=== PATIENT | male | born 1985 | race Caucasian/White ===

== ENCOUNTER 2021-06-23 15:32 | Emergency (ER) | payer OTHER ==
[2021-06-23 15:53] VITALS: BP 145/93; PULSE 83; O2SAT 99
[2021-06-23] MEDS ORDERED: PERCOCET TABLET 5/325MG ONE (16:21)
[2021-06-23] MEDS: Augmentin 875-125 Tablet PO ONE (16:21)
[2021-06-23] MEDS ORDERED: Augmentin 875-125 Tablet ONE (16:21)
[2021-06-23] MEDS: PERCOCET TABLET 5/325MG PO ONE (16:21)
--- NOTE | 2021-06-23 16:22 | ERPHSYRPT ---
- History of Present Illness Time Seen by Provider: 06/23/21 15:42 Source: patient Exam Limitations: no limitations Patient Subjective Stated Complaint: Toothache Triage Nursing Assessment: Patient brought back to ED via w/c and requested to remain in personal w/c. Patient A+O x 3. Patient's skin pink, warm and dry. Patient complains of toothache to all of [place] teeth 10/10. Patient states he is unable to get into dentist for 3 weeks. Gums noted to be red and swollen with all bottom teeth decayed. Physician History: 36 years old male with history of bad dentition with multiple fractures, periodontal disease presented in the ER with right lower jaw pain and swelling for 1 week with progressive worsening making it difficult to swallow and more with hot and cold touch. Partial relief with [id number] medication. No fever or chills reported. Timing/Duration: gradual onset, weeks (2) Severity: moderate ENT Location: facial, dental Prearrival Treatment: over the counter meds Associated Symptoms: tooth pain Allergies/Adverse Reactions: No Known Drug Allergies Allergy (Unverified 06/23/21 15:46) Hx Influenza Vaccination/Date Given: No Hx Pneumococcal Vaccination/Date Given: No Immunizations Up to Date: Yes Travel Risk - International Travel Have you traveled outside of the country in past 3 weeks: No - Coronavirus Screening Are you exhibiting any of the following symptoms?: No Close contact with a COVID-19 positive Pt in past 14-21 Days: No - Vaccine Status Have you recieved a Covid-19 vaccination: No - Review of Systems Constitutional: No Symptoms Eyes: No Symptoms Ears, Nose, & Throat: Mouth Pain, Loose Teeth Respiratory: No Symptoms Cardiac: No Symptoms Abdominal/Gastrointestinal: No Symptoms Genitourinary Symptoms: No Symptoms Skin: No Symptoms Neurological: No Symptoms Endocrine: No Symptoms Hematologic/Lymphatic: No Symptoms - Past Medical History Pertinent Past Medical History: No Neurological History: No Pertinent History ENT History: No Pertinent History Cardiac History: No Pertinent History Respiratory History: No Pertinent History Endocrine Medical History: No Pertinent History Musculoskeletal History: No Pertinent History GI Medical History: No Pertinent History History: No Pertinent History Psycho-Social History: No Pertinent History Male Reproductive Disorders: No Pertinent History - Past Surgical History Past Surgical History: No Neuro Surgical History: No Pertinent History Cardiac: No Pertinent History Respiratory: No Pertinent History Gastrointestinal: No Pertinent History Genitourinary: No Pertinent History Musculoskeletal: No Pertinent History Male Surgical History: No Pertinent History - Social History Smoking Status: Current every day smoker How long have you smoked: years Exposure to second hand smoke: No Drug Use: none Patient Lives Alone: Yes - Nursing Vital Signs Nursing Vital Signs: Initial Vital Signs Temperature 98.0 F 06/23/21 15:46 Pulse Rate 83 06/23/21 15:46 Respiratory Rate 18 06/23/21 15:46 Blood Pressure 145/93 06/23/21 15:46 O2 Sat by Pulse Oximetry 99 06/23/21 15:46 Pain Scale Pain Intensity 7 - Physical Exam General Appearance: no apparent distress, alert Eye Exam: bilateral eye: normal inspection, PERRL, EOMI Ear Exam: bilateral ear: auricle normal, canal normal, TM normal Nasal Exam: normal inspection Throat Exam: dental tenderness (Multiple broken teeth with caries and periodontal disease. Swollen left lower gingiva with minimal tenderness. 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, normal mood/affect Skin Exam: normal color, warm SpO2 Interpretation: normal SpO2: 99 O2 Delivery: Room Air Ordered Tests: Medication Summary Discontinued Medications Generic Name Dose Route Start Last Admin Trade Name Frantzq PRN Reason Stop Dose Admin Amoxicillin/Clavulanate Potassium 875 mg 06/23/21 16:17 06/23/21 16:21 Amox Tr/Potassium Clavulanate 875 Mg Tablet PO 06/23/21 16:18 875 mg STAT ONE Administration Amoxicillin/Clavulanate Potassium Confirm 06/23/21 16:21 Amox Tr/Potassium Clavulanate 875 Mg Tablet Administered 06/23/21 16:22 Dose 875 mg .ROUTE .STK-MED ONE Oxycodone/Acetaminophen 1 tab 06/23/21 16:17 06/23/21 16:21 Oxycodone Hcl/Apap 5 Mg/325 Mg Tablet PO 06/23/21 16:18 1 tab STAT ONE Administration Oxycodone/Acetaminophen Confirm 06/23/21 16:21 Oxycodone Hcl/Apap 5 Mg/325 Mg Tablet Administered 06/23/21 16:22 Dose 1 tab .ROUTE .STK-MED ONE - Progress Progress: pain not gone completely Progress Note: 06/23/21 16:19 Given pain medication and started on antibiotics, recommended outpatient dental follow-up. Counseled pt/family regarding: diagnosis, need for follow-up - Departure Departure Disposition: Home Clinical Impression: Dental infection Condition: Stable Critical Care Time: No Referrals: CAROLEE ANTON [Primary Care Provider] - Follow up/PCP as directed LUIS HUERTA DDS [NON-STAFF PHY W/O PRIVILEGES] - Follow up/PCP as directed (Call for appointment in the morning) Instructions: Tooth Abscess (DC), Dental Pain (DC) Additional Instructions: Take Tylenol/ibuprofen as needed. Follow-up with dentist for reevaluation. Return to ER for increasing pain swelling, difficulty swallowing, fever chills etc. Prescriptions: Ibuprofen 600 mg PO Q6HPRN PRN 10 Days #20 tablet PRN Reason: Pain Amox Tr/Potass Clav. 875 mg [Augmentin 875-125 Tablet] 875 mg PO BID #14 tablet
== END 2021-06-23 16:34 | disposition home or self-care (01) ==
LOC: ED 15:32
DX: K04.7 Periapical abscess without sinus (principal); Z72.0 Tobacco use
CPT/HCPCS: 99283; A9270-GY

== ENCOUNTER 2021-07-15 17:07 | Emergency (ER) | payer OTHER ==
[2021-07-15 17:18] VITALS: O2SAT 98
[2021-07-15] MEDS ORDERED: Rocephin 1000 MG INJ IM ONE (18:07)
[2021-07-15] MEDS ORDERED: AFRIN NASAL SPRAY NS ONE (18:08)
[2021-07-15 18:10] VITALS: BP 131/59; PULSE 82
[2021-07-15] MEDS ORDERED: Rocephin 1000 MG INJ ONE (18:11)
--- NOTE | 2021-07-15 18:13 | ERPHSYRPT ---
- History of Present Illness Time Seen by Provider: 07/15/21 18:09 Source: patient Exam Limitations: no limitations Patient Subjective Stated Complaint: Pt states "I have horrible sinus pressure, I feel like my temperature is high and I ache." Triage Nursing Assessment: Pt presented alert and oriented X 3, skin pwd Pt able to speak in clear full setences. Pt in no apparent respiratory distress. Pt uses a wheelchair. Physician History: Patient is a 36-year-old male who presents with a complaint of runny nose body aches headache facial pressure and sinus drainage. He has had some cough which is nonproductive. He has no known exposure to COVID. He does have a slight sore throat. Timing/Duration: day(s) (Several days) Cough Quality/Degree: dry cough Possible Cause: occasional episodes Modifying Factors: Improves With: coughing Associated Symptoms: cough, facial pain, headache, nasal congestion, nasal drainage, sinus infection, sore throat Allergies/Adverse Reactions: No Known Drug Allergies Allergy (Verified 07/15/21 17:18) Hx Tetanus, Diphtheria Vaccination/Date Given: No Hx Influenza Vaccination/Date Given: No Hx Pneumococcal Vaccination/Date Given: No Immunizations Up to Date: Yes Travel Risk - International Travel Have you traveled outside of the country in past 3 weeks: No - Coronavirus Screening Are you exhibiting any of the following symptoms?: No Close contact with a COVID-19 positive Pt in past 14-21 Days: No - Vaccine Status Have you recieved a Covid-19 vaccination: No - Review of Systems Constitutional: Chills, No Fever Eyes: No Symptoms Ears, Nose, & Throat: Nose Congestion, Nose Discharge, Sinus Drainage, Throat Pain Respiratory: Cough, No Dyspnea Cardiac: No Chest Pain, No Edema, No Syncope Abdominal/Gastrointestinal: No Abdominal Pain, No Nausea, No Vomiting, No Diarrhea Genitourinary Symptoms: No Dysuria Musculoskeletal: No Back Pain, No Neck Pain Skin: No Rash Neurological: No Dizziness, No Focal Weakness, No Sensory Changes Psychological: No Symptoms Endocrine: No Symptoms All Other Systems: Reviewed and Negative - Past Medical History Pertinent Past Medical History: Yes Neurological History: No Pertinent History ENT History: No Pertinent History Cardiac History: No Pertinent History Respiratory History: No Pertinent History Endocrine Medical History: No Pertinent History Musculoskeletal History: No Pertinent History GI Medical History: No Pertinent History History: No Pertinent History Psycho-Social History: No Pertinent History Male Reproductive Disorders: No Pertinent History - Past Surgical History Past Surgical History: Yes Neuro Surgical History: No Pertinent History Cardiac: No Pertinent History Respiratory: No Pertinent History Gastrointestinal: No Pertinent History Genitourinary: No Pertinent History Musculoskeletal: No Pertinent History Male Surgical History: No Pertinent History Other Surgical History: right leg - Social History Smoking Status: Current every day smoker How long have you smoked: years Exposure to second hand smoke: No Drug Use: none Patient Lives Alone: Yes - Nursing Vital Signs Nursing Vital Signs: Initial Vital Signs Temperature 98.8 F 07/15/21 17:13 Pulse Rate 85 07/15/21 17:13 Respiratory Rate 22 07/15/21 17:13 Blood Pressure 139/65 07/15/21 17:13 O2 Sat by Pulse Oximetry 98 07/15/21 17:13 Pain Scale Pain Intensity 10 - Physical Exam General Appearance: mild distress, alert Eye Exam: PERRL/EOMI, eyes nml inspection Ears, Nose, Throat Exam: TMs normal, pharynx normal, moist mucous membranes, other (Copious watery nasal drainage) Neck Exam: normal inspection, non-tender, supple, full range of motion Respiratory Exam: normal breath sounds, lungs clear, No respiratory distress Cardiovascular Exam: regular rate/rhythm, normal heart sounds Gastrointestinal/Abdomen Exam: soft, No tenderness Back Exam: normal inspection, No CVA tenderness, No vertebral tenderness Extremity Exam: normal inspection, normal range of motion Neurologic Exam: alert, oriented x 3, cooperative, normal mood/affect, sensation nml, No motor deficits Skin Exam: normal color, warm, dry, No rash Lymphatic Exam: No adenopathy SpO2: 98 - Course Nursing assessment & vital signs reviewed: Yes Ordered Tests: Medication Summary Generic Name Dose Route Start Last Admin Trade Name Freq PRN Reason Stop Dose Admin Oxymetazoline HCl 15 ml 07/15/21 18:08 Oxymetazoline Nasal [place] 15ml Bottle NS 07/15/21 18:09 STAT ONE - Progress Air Movement: good Blood Culture(s) Obtained: No Antibiotics given: Yes - Departure Departure Disposition: Home Clinical Impression: Sinusitis Condition: Stable Critical Care Time: No Referrals: CAROLEE ANTON [Primary Care Provider] - Follow up/PCP as directed Instructions: Sinusitis, Adult (DC) Prescriptions: Cephalexin Mh 500 mg [Keflex 500 mg] 500 mg PO QID #40 cap
== END 2021-07-15 18:28 | disposition home or self-care (01) ==
LOC: ED 17:07
DX: J01.90 Acute sinusitis, unspecified (principal); R51.9 Headache, unspecified; J34.89 Other specified disorders of nose and nasal sinuses; M79.10 Myalgia, unspecified site; R05.9 Cough, unspecified; R09.81 Nasal congestion; Z72.0 Tobacco use
CPT/HCPCS: 96372; U0003; 99284; J0696; A9270-GY

== ENCOUNTER 2022-05-21 03:07 | Emergency (ER) | payer OTHER ==
--- NOTE | 2022-05-21 03:14 | ERPHSYRPT ---
- History of Present Illness Time Seen by Provider: 05/21/22 03:14 Source: patient Exam Limitations: no limitations Physician History: This is a 37-year-old white male patient who has general poor dentition. Pain in the left side of his upper and lower molars began hurting yesterday. Today, there is been some swelling noted. Patient has not seen a dentist yet for his current complaints. ENT Location: dental Prearrival Treatment: no prearrival treatment Associated Symptoms: tooth pain Allergies/Adverse Reactions: No Known Drug Allergies Allergy (Verified 07/15/21 17:18) Hx Tetanus, Diphtheria Vaccination/Date Given: No Hx Influenza Vaccination/Date Given: No Hx Pneumococcal Vaccination/Date Given: No Travel Risk - International Travel Have you traveled outside of the country in past 3 weeks: No - Coronavirus Screening Are you exhibiting any of the following symptoms?: No Close contact with a COVID-19 positive Pt in past 14-21 Days: No - Vaccine Status Have you recieved a Covid-19 vaccination: No - Review of Systems Constitutional: No Symptoms Eyes: No Symptoms Ears, Nose, & Throat: Other (Left-sided dental pain) Respiratory: No Symptoms, No Stridor Cardiac: No Symptoms Abdominal/Gastrointestinal: No Symptoms Genitourinary Symptoms: No Symptoms Musculoskeletal: No Symptoms Skin: No Symptoms Neurological: No Symptoms Psychological: No Symptoms Endocrine: No Symptoms Hematologic/Lymphatic: No Symptoms Immunological/Allergic: No Symptoms All Other Systems: Reviewed and Negative - Past Medical History Pertinent Past Medical History: Yes Neurological History: No Pertinent History ENT History: No Pertinent History Cardiac History: No Pertinent History Respiratory History: No Pertinent History Endocrine Medical History: No Pertinent History Musculoskeletal History: No Pertinent History GI Medical History: No Pertinent History History: No Pertinent History Psycho-Social History: No Pertinent History Male Reproductive Disorders: No Pertinent History - Past Surgical History Past Surgical History: Yes Neuro Surgical History: No Pertinent History Cardiac: No Pertinent History Respiratory: No Pertinent History Gastrointestinal: No Pertinent History Genitourinary: No Pertinent History Musculoskeletal: No Pertinent History Male Surgical History: No Pertinent History Other Surgical History: right leg - Social History Smoking Status: Current every day smoker How long have you smoked: years Exposure to second hand smoke: No Drug Use: none Patient Lives Alone: Yes - Nursing Vital Signs Nursing Vital Signs: Initial Vital Signs Temperature 98.7 F 11/05/22 03:16 Pulse Rate 106 H 05/21/22 03:16 Respiratory Rate 18 05/21/22 03:16 Blood Pressure 137/77 05/21/22 03:16 O2 Sat by Pulse Oximetry 97 05/21/22 03:16 Pain Scale Pain Intensity 8 - Physical Exam General Appearance: no apparent distress, alert Eye Exam: bilateral eye: normal inspection, PERRL, EOMI Ear Exam: bilateral ear: auricle normal Nasal Exam: normal inspection Throat Exam: dental tenderness (Generalized poor dentition with multiple fractured teeth), mandibular swelling (Left side mild), maxillary swelling (Left side mild), No voice changes Neck Exam: normal inspection, non-tender, supple, full range of motion, trachea midline Cardiovascular/Respiratory Exam: chest non-tender, no respiratory distress Abdominal Exam: non-tender Neurologic Exam: alert, oriented x 3, cooperative, 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, normal mood/affect, nml cerebellar function, nml station & gait, sensation nml Skin Exam: normal color, warm, dry O2 Delivery: Room Air - Course Nursing assessment & vital signs reviewed: Yes Ordered Tests: Medication Summary Discontinued Medications Generic Name Dose Route Start Last Admin Trade Name Gunner PRN Reason Stop Dose Admin Ceftriaxone Sodium 1,000 mg 05/21/22 03:46 05/21/22 03:50 Ceftriaxone Sodium 1000 Mg Inj Vial IM 05/21/22 03:47 1,000 mg STAT ONE Administration Ceftriaxone Sodium Confirm 05/21/22 03:49 Ceftriaxone Sodium 1000 Mg Inj Vial Administered 05/21/22 03:50 Dose 1,000 mg .ROUTE .STK-MED ONE - Progress Progress: unchanged Counseled pt/family regarding: diagnosis, need for follow-up - Departure Departure Disposition: Home Clinical Impression: Pain due to dental caries Condition: Stable Critical Care Time: No Referrals: CAROLEE ANTON [Primary Care Provider] - Follow up/PCP as directed Additional Instructions: Take your antibiotics as prescribed. Use [id number] Tylenol and ibuprofen for pain control. Follow-up with a dentist on 05/23/2022 for definitive care. Prescriptions: Cephalexin Mh 500 mg [Keflex 500 mg] 500 mg PO TID #21 cap
[2022-05-21 03:25] VITALS: BP 137/77
[2022-05-21] MEDS ORDERED: Rocephin 1000 MG INJ IM ONE (03:46)
[2022-05-21] MEDS ORDERED: Rocephin 1000 MG INJ ONE (03:49)
[2022-05-21] MEDS ORDERED: PERCOCET TABLET 5/325MG PO STA (03:55)
[2022-05-21] MEDS ORDERED: PERCOCET TABLET 5/325MG ONE (04:09)
[2022-05-21 04:17] VITALS: PULSE 100; O2SAT 98
== END 2022-05-21 04:17 | disposition home or self-care (01) ==
LOC: ED 03:07
DX: K02.9 Dental caries, unspecified (principal); K08.89 Other specified disorders of teeth and supporting structures; Z72.0 Tobacco use; Z28.310 Unvaccinated for COVID-19
CPT/HCPCS: 96372; 99283; J0696; A9270-GY

== ENCOUNTER 2023-06-07 12:53 | Emergency (ER) | payer OTHER ==
--- NOTE | 2023-06-07 13:08 | ERPHSYRPT ---
- History of Present Illness Time Seen by Provider: 06/07/23 13:07 Source: patient Exam Limitations: no limitations Physician History: This is a 38-year-old white male patient who presents to the emergency department by ambulance secondary to not having transportation secondary to sore throat and having painful swallowing and pain on his tongue as well as white spots on his tongue on the left side. He is not short of breath. He has no chest pain. He has no abdominal pain. He had no fever. He denies cough. He had no nausea vomiting or diarrhea symptoms. Timing/Duration: day(s) (4) Cough Quality/Degree: no cough Possible Cause: no prior episodes Associated Symptoms: sore throat, No fever, No chills, No chest pain/soreness, No cough, No muscle aches Allergies/Adverse Reactions: No Known Drug Allergies Allergy (Verified 06/07/23 12:56) Hx Tetanus, Diphtheria Vaccination/Date Given: No Hx Influenza Vaccination/Date Given: No Hx Pneumococcal Vaccination/Date Given: No Travel Risk - International Travel Have you traveled outside of the country in past 3 weeks: No - Coronavirus Screening Are you exhibiting any of the following symptoms?: No Close contact with a COVID-19 positive Pt in past 14-21 Days: No - Vaccine Status Have you recieved a Covid-19 vaccination: No - Review of Systems Constitutional: No Symptoms Eyes: No Symptoms Ears, Nose, & Throat: Painful Swallowing, Other (Posterior left side tongue soreness) Respiratory: No Symptoms Cardiac: No No Symptoms Abdominal/Gastrointestinal: No Symptoms Genitourinary Symptoms: No Symptoms Musculoskeletal: No Symptoms Skin: No Symptoms Neurological: No Symptoms Psychological: No Symptoms Endocrine: No Symptoms Hematologic/Lymphatic: No Symptoms Immunological/Allergic: No Symptoms All Other Systems: Reviewed and Negative - Past Medical History Pertinent Past Medical History: Yes Neurological History: No Pertinent History ENT History: No Pertinent History Cardiac History: No Pertinent History Respiratory History: No Pertinent History Endocrine Medical History: No Pertinent History Musculoskeletal History: No Pertinent History GI Medical History: No Pertinent History History: No Pertinent History Psycho-Social History: No Pertinent History Male Reproductive Disorders: No Pertinent History - Past Surgical History Past Surgical History: Yes Neuro Surgical History: No Pertinent History Cardiac: No Pertinent History Respiratory: No Pertinent History Gastrointestinal: No Pertinent History Genitourinary: No Pertinent History Musculoskeletal: No Pertinent History Male Surgical History: No Pertinent History Other Surgical History: right leg - Social History Smoking Status: Current every day smoker How long have you smoked: years Exposure to second hand smoke: No Drug Use: none Patient Lives Alone: Yes - Nursing Vital Signs Nursing Vital Signs: Initial Vital Signs Temperature 99 F 06/07/23 12:54 Pulse Rate 93 H 06/07/23 12:54 Respiratory Rate 18 06/07/23 12:54 Blood Pressure 116/88 06/07/23 12:54 O2 Sat by Pulse Oximetry 99 06/07/23 12:54 Pain Scale Pain Intensity 0 - Physical Exam General Appearance: no apparent distress, alert, anxiety Eye Exam: PERRL/EOMI Ears, Nose, Throat Exam: moist mucous membranes, other (Left side posterior tongue with white fibrinous exudate spots present. Patient is handling his secretions but he is in obvious discomfort when he swallows.) Neck Exam: normal inspection, non-tender, supple, full range of motion Respiratory Exam: normal breath sounds, lungs clear, airway intact, No chest tenderness, No respiratory distress Cardiovascular Exam: regular rate/rhythm, normal heart sounds, normal peripheral pulses Gastrointestinal/Abdomen Exam: soft, normal bowel sounds, No tenderness Rectal Exam: not done Back Exam: normal inspection, normal range of motion, No CVA tenderness, No vertebral tenderness Extremity Exam: normal inspection, normal range of motion, pelvis stable Neurologic Exam: alert, oriented x 3, cooperative, 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, normal mood/affect, nml cerebellar function, nml station & gait, sensation nml Skin Exam: normal color, warm, dry Lymphatic Exam: No adenopathy SpO2 Interpretation: normal O2 Delivery: Room Air - Course Nursing assessment & vital signs reviewed: Yes Ordered Tests: Active Orders 24 hr Category Date Time Status NECK WO CONTRAST [CT] Stat Exams 06/07/23 15:08 Completed Lab/Rad Data: Laboratory Results 06/07/23 06/07/23 Range/Units 13:12 13:00 Influenza Type A Ag NEGATIVE (NEGATIVE) Influenza Type B Ag NEGATIVE (NEGATIVE) RSV (PCR) NEGATIVE (NEGATIVE) SARS-CoV-2 (PCR) NEGATIVE (NEGATIVE) Group A Strep Antibody NOT DETECTED (NEGATIVE) - Progress Progress: re-examined, unchanged Air Movement: good Progress Note: 06/07/23 14:33 This patient medical issues 1 of low complexity. Level complex in the workup performed based on review the patient's past medical history, review the patient medication list, review the patient drug allergy list, history present illness and physical findings on examination. Workup includes viral swabs and group A strep swab. 06/07/23 15:17 I reexamined him at the time I was initially going to discharge him. However, he does seem to be in significant discomfort when he swallows. He is breathing well his oxygen saturation levels are normal. Because of the symptoms and the presence of the fibrous and exudate I am ordering a CT scan of the neck/soft tissue. 06/07/23 16:10 CT scan of soft tissue of the neck shows soft tissue mass expected region of the palate teen tonsil. Rule out tonsillitis clinically. Malignancy is not totally excluded. Prominent left cervical lymph nodes. Reactive versus metastatic. I reviewed the results of this study which was interpreted by the radiologist and I reviewed the impression. He was told specifically that he needs to follow-up with his primary care provider in the next 3 to 5 days for further evaluation management. He was also told to return to the emergency department if symptoms worsen Blood Culture(s) Obtained: No Antibiotics given: Yes Counseled pt/family regarding: lab results, diagnosis, rad results Medical Desision Making - Diagnostic Testing Diagnostic test were ordered, analyzed, and reviewed by me: Yes Radiological Interpretation: Reviewed by me, Teleradiologist Report - Risk of complications The pt has a mod risk of morbidity or mortality based on: Need for prescription drug management - Departure Departure Disposition: Home Clinical Impression: Tonsillar mass Condition: Stable Critical Care Time: No Referrals: DOCTOR,NO FAMILY [Primary Care Provider] - Follow up/PCP as directed Additional Instructions: Drink plenty of clear and full liquids. Take your medication as prescribed. Call your primary care provider to make a follow-up appointment in the next 3 to 5 days to discuss further evaluation and management of the left tonsillar mass. Return to the emergency department if symptoms worsen Prescriptions: Prednisone 10 mg [Deltasone 10 mg] 10 mg PO TID #12 tablet Hydrocodone/Acetaminophen [Hydrocodone-Acetamn 7.5-325/15] 10 ml PO Q8H PRN #120 ml MDD 30 ml PRN Reason: Cough Azithromycin 250 mg [Zithromax 250 MG TABLET] 250 mg PO ZPACK #6 tablet
[2023-06-07 13:13] VITALS: RESP 18; TEMP 99
[2023-06-07 13:49] LABS: INFLUENZA A NEGATIVE (NEGATIVE); INFLUENZA B NEGATIVE (NEGATIVE); RESPIRATORY SYNCTIAL VIRUS NEGATIVE (NEGATIVE); SARS-CoV-2 Xpert Express NEGATIVE (NEGATIVE)
[2023-06-07 15:12] VITALS: BP 97/76; PULSE 81; O2SAT 99
--- NOTE | 2023-06-07 16:03 | XRAY ---
Indication: Left posterior pharyngeal/lingual pain. Multiple contiguous axial images obtained through the neck without contrast as ordered. Comparison: None Homogeneous soft tissue mass in expected region left palatine tonsil measuring at least 1.5 x 1.8 cm greatest axial dimension either unilateral tonsillitis versus malignancy. Lack of IV contrast precludes further characterization. Prominent level I left cervical nodes largest 1.9 x 1.1 cm either reactive to tonsillitis versus metastatic. Normal epiglottis. Infraglottic airway widely patent. Thyroid gland homogeneous. Major arteries and veins are normal in course and caliber. Visualized osseous structures intact with moderate C5-C6 degenerative disc disease. No suspicious bony lesions. Lung apices demonstrates subpleural cystic changes bilaterally. Base of brain unremarkable. Visualized paranasal sinuses and mastoid air cells are clear. Impression: Soft tissue mass expected region left palatine tonsil. Rule out tonsillitis clinically. Malignancy not completely excluded. Direct laryngoscopic may yield further information. Prominent left cervical lymph nodes either reactive versus metastatic.
[2023-06-07] MEDS ORDERED: Rocephin 1000 MG INJ IM ONE (16:15)
[2023-06-07] MEDS ORDERED: solu-MEDROL 125 MG, Sterile H2O 10 ml 2 ML IM ONE ×2 (16:15)
[2023-06-07] MEDS ORDERED: solu-MEDROL ONE (16:20)
[2023-06-07] MEDS ORDERED: Sterile H2O 10 ml IJ ONE (16:20)
[2023-06-07] MEDS ORDERED: Rocephin 1000 MG INJ ONE (16:21)
[2023-06-07] MEDS ORDERED: XYLOCAINE 1% HCL 20 ML MDV ONE (16:21)
== END 2023-06-07 17:31 | disposition home or self-care (01) ==
LOC: ED 12:53
DX: J35.8 Other chronic diseases of tonsils and adenoids (principal); R07.0 Pain in throat; R13.10 Dysphagia, unspecified; Z79.52 Long term (current) use of systemic steroids; Z79.891 Long term (current) use of opiate analgesic; Z28.310 Unvaccinated for COVID-19; Z72.0 Tobacco use
CPT/HCPCS: 0241U; 70490; 87651; 96372; 99284; J0696; J2930

== ENCOUNTER 2023-08-15 09:52 | Emergency (ER) | payer OTHER ==
[2023-08-15 09:56] VITALS: RESP 20; O2SAT 98
--- NOTE | 2023-08-15 10:32 | XRAY ---
Indication: Pain. Multiple contiguous axial images obtained through the abdomen and pelvis without contrast. Comparison: None Study is degraded by respiration artifact throughout. Lung bases grossly clear. Heart not enlarged. Stomach distended with food/fluid. Gallbladder contracted without gallstones. Noncontrasted stomach and bowel loops appear nonobstructed. Appendix not seen. There is mild diffuse scattered colonic fecal debris with moderate rectal fecal impaction. No free fluid/air. Remaining liver, gallbladder, pancreas, spleen, adrenal glands, kidneys, ureters, bladder, and aorta are unremarkable for noncontrast exam. Osseous structures intact. No ventral or inguinal hernias. Impression: 1. Respiration artifact. 2. Mild diffuse fecal stasis with rectal impaction. 3. Remaining CT abdomen/pelvis without contrast exam is grossly negative.
--- NOTE | 2023-08-15 10:48 | ERPHSYRPT ---
- History of Present Illness Time Seen by Provider: 08/15/23 10:00 Source: patient Exam Limitations: no limitations Patient Subjective Stated Complaint: Pt states "I started to go to the bathroom and it stopped and the poop is large and hard, I had to break it off and it h urts and there is some bleeding." Triage Nursing Assessment: Pt presented alert and oriented X 3, skin pwd. PT ambulates with an upright steady gait, able to speak in clear full sentences. Physician History: Patient is here for constipation. Patient is passing stool however states it is too painful. No other complaints. Symptoms started today. No rectal bleeding. No chest pain or shortness of breath. No nausea vomiting or diaphoresis. No trauma no fever. Patient voices no other complaints or concerns at this time. Portions of this note were created with voice recognition technology. There may be grammatical, spelling, punctuation or sound alike errors Timing/Duration: today Severity: moderate Modifying Factors: Improves With: nothing Associated Symptoms: denies symptoms Allergies/Adverse Reactions: No Known Drug Allergies Allergy (Verified 06/07/23 12:56) Home Medications: No Reportable Medications [No Reported Medications] 08/15/23 [History] Hx Tetanus, Diphtheria Vaccination/Date Given: No Hx Influenza Vaccination/Date Given: No Hx Pneumococcal Vaccination/Date Given: No Immunizations Up to Date: No Travel Risk - International Travel Have you traveled outside of the country in past 3 weeks: No - Coronavirus Screening Are you exhibiting any of the following symptoms?: No Close contact with a COVID-19 positive Pt in past 14-21 Days: No - Vaccine Status Have you recieved a Covid-19 vaccination: No - Review of Systems Constitutional: No Symptoms, No Fever, No Chills Eyes: No Symptoms Ears, Nose, & Throat: No Symptoms Respiratory: No Symptoms, No Cough, No Dyspnea Cardiac: No Symptoms, No Chest Pain, No Edema, No Syncope Abdominal/Gastrointestinal: No Symptoms, No Abdominal Pain, No Nausea, No Vomiting, No Diarrhea Genitourinary Symptoms: No Symptoms, No Dysuria Musculoskeletal: No Symptoms, No Back Pain, No Neck Pain Skin: No Symptoms, No Rash Neurological: No Symptoms, No Dizziness, No Focal Weakness, No Sensory Changes Psychological: No Symptoms Endocrine: No Symptoms Hematologic/Lymphatic: No Symptoms Immunological/Allergic: No Symptoms All Other Systems: Reviewed and Negative - Past Medical History Pertinent Past Medical History: Yes Neurological History: No Pertinent History ENT History: No Pertinent History Cardiac History: No Pertinent History Respiratory History: No Pertinent History Endocrine Medical History: No Pertinent History Musculoskeletal History: No Pertinent History GI Medical History: No Pertinent History History: No Pertinent History Psycho-Social History: No Pertinent History Male Reproductive Disorders: No Pertinent History - Past Surgical History Past Surgical History: Yes Neuro Surgical History: No Pertinent History Cardiac: No Pertinent History Respiratory: No Pertinent History Gastrointestinal: No Pertinent History Genitourinary: No Pertinent History Musculoskeletal: No Pertinent History Male Surgical History: No Pertinent History Other Surgical History: right leg - Social History Smoking Status: Current every day smoker How long have you smoked: years Exposure to second hand smoke: No Drug Use: none Patient Lives Alone: Yes - Nursing Vital Signs Nursing Vital Signs: Initial Vital Signs Temperature 97.6 F 08/15/23 09:52 Pulse Rate 80 08/15/23 09:52 Respiratory Rate 20 08/15/23 09:52 Blood Pressure 96/62 08/15/23 09:52 O2 Sat by Pulse Oximetry 98 08/15/23 09:52 Pain Scale Pain Intensity 6 - Physical Exam General Appearance: no apparent distress, alert Eye Exam: PERRL/EOMI, eyes nml inspection Ears, Nose, Throat Exam: normal ENT inspection, TMs normal, pharynx normal, moist mucous membranes Neck Exam: normal inspection, non-tender, supple, full range of motion Respiratory Exam: normal breath sounds, lungs clear, airway intact, No respiratory distress Cardiovascular Exam: regular rate/rhythm, normal heart sounds, normal peripheral pulses Gastrointestinal/Abdomen Exam: soft, normal bowel sounds, No tenderness, No mass Back Exam: normal inspection, normal range of motion, No CVA tenderness, No vertebral tenderness Extremity Exam: normal inspection, normal range of motion, pelvis stable Neurologic Exam: alert, oriented x 3, cooperative, normal mood/affect, sensation nml, No motor deficits Skin Exam: normal color, warm, dry, No rash Lymphatic Exam: No adenopathy SpO2 Interpretation: normal SpO2: 98 O2 Delivery: Room Air - Course Nursing assessment & vital signs reviewed: Yes - CT Exams Abdomen/Pelvis CT Interpretation: Tele-radiologist Report (Rectal fecal impaction) Ordered Tests: Active Orders 24 hr Category Date Time Status ABDOMEN AND PELVIS W/0 CONTRAS [CT] Stat Exams 08/15/23 09:55 Completed - Progress Progress: improved Progress Note: 38-year-old male presents to our ED for evaluation of constipation. CT reveals fecal rectal impaction. Patient disimpacted in our ED. Patient resting comfortably. No active pain. Patient states he is ready for discharge. Vital stable. Patient voices no other complaints or concerns at this time. Portions of this note were created with voice recognition technology. There may be grammatical, spelling, punctuation or sound alike errors Complexity problem addressed is moderate acute complicated No critical care time Complex data reviewed and analyzed is moderate. Test ordered test reviewed her results analyzed and correlated clinically with history and physical examination. Risk of complication and or risk of morbidity/mortality of patient management is low Vital stable. Time spent to discharge patient is approximately 15 minutes. Plan of care established for shared decision making. No social determinants of health present impede follow-up. Portions of this note were created with voice recognition technology. There may be grammatical, spelling, punctuation or sound alike errors 08/15/23 11:02 Counseled pt/family regarding: diagnosis, need for follow-up, rad results - Departure Departure Disposition: Home Clinical Impression: Constipation, Fecal impaction in rectum Condition: Stable Critical Care Time: No Referrals: DOCTOR,NO FAMILY [Primary Care Provider] - Follow up/PCP as directed NAIMA LAINEZ DO [ACTIVE STAFF] - Follow up/PCP as directed Additional Instructions: Discharge/Care Plan NAN LEHMAN was seen on 08/15/23 in the Emergency Room. The patient was counseled regarding Diagnosis,Lab results, Imaging studies, need for follow up and when to return to the Emergency Room. Prescriptions given: Discharge Note I have spoken with the patient and/or caregivers. I have explained the patient's condition, diagnosis and treatment plan based on the information available to me at this time. I have answered the patient's and/or caregiver's questions and addressed any concerns. The patient and/or caregivers have as good understanding of the patient's diagnosis, condition and treatment plan as can be expected at this point. The vital signs have been stable. The patient's condition is stable and appropriate for discharge from the emergency department. The patient will pursue further outpatient evaluation with the primary care physician or other designated or consulting physician as outlined in the discharge instructions. The patient and/or caregivers are agreeable to this plan of care and follow-up instructions have been explained in detail. The patient and/or caregivers have received these instruction. The patient/and or caregivers are aware that any significant change in condition or worsening of symptoms should prompt an immediate return to this or the closest emergency department or call 911.
[2023-08-15 11:24] VITALS: BP 110/68; PULSE 78; TEMP 97.8
== END 2023-08-15 11:30 | disposition home or self-care (01) ==
LOC: ED 09:52
DX: K56.41 Fecal impaction (principal); Z28.310 Unvaccinated for COVID-19; Z72.0 Tobacco use
CPT/HCPCS: 74176; 99283